=== PATIENT | male | born 1995 | race Caucasian/White ===

== ENCOUNTER 2025-02-21 05:57 | Emergency (ER) | payer OTHER, SELFPAY ==
[2025-02-21 06:12] VITALS: BP 131/89
--- NOTE | 2025-02-21 08:16 | ED.GENMED ---
History of Present Illness
General
Chief Complaint: Throat Problem
Source: patient
Exam Limitations: none
Time Seen by Provider: 02/21/25 08:09
Nursing documentation reviewed up to this point in time: agreed with
History of Present Illness
History of Present Illness:
29-year-old male with a past medical history of asthma who presents to the emergency room for evaluation of sore throat. Patient reports that he was diagnosed with influenza about a week ago and was treated with Tamiflu and completed his course.
He says that his symptoms had completely resolved and he felt fine over the past few days until yesterday when he started to notice a mild scratchy throat which progressed to a sore throat in the evening time. This morning woke up and had low-grade
fever and worsening sore throat which prompted ER referral. He has noticed some hoarseness of his voice. He denies any drooling. No trismus. He denies any other acute complaints. He does make note that his daughter was recently positive for
strep.
Review of Systems
Review of Systems
All Other Systems: ROS reviewed and negative except as documented in HPI and ROS
Constitutional: Reports fever
EENT: Reports sore throat; Denies runny nose
Respiratory: Reports cough; Denies trouble breathing
ABD/GI: Denies vomiting
Phy Exam
Physical Exam
Physical Exam:
General: Awake, alert, oriented x3; no acute distress
Head: Normocephalic, atraumatic
Eyes: Conjunctiva normal, EOMI
Throat: Airway intact, handling secretions without drooling, no trismus, midline uvula without deviation, mild tonsillar erythema and symmetric enlargement but no exudate noted, mild erythema of the pharynx
Neck: Trachea midline, supple without meningismus; bilateral left greater than right cervical adenopathy
Lungs: Breathing comfortably without evidence of respiratory distress
Heart: Regular rate
Skin: Warm and dry
Extremities: Warm and well-perfused
Scores
Heart Failure Risk
Heart Failure Risk Score: Not Applicable
Heart Score for Chest Pain Patients
STEMI patient?: Not applicable
Withdrawal Assessment of Alcohol
Withdrawal Assessment Completed?: Not applicable
Course
Orders/Labs/Results
Orders:
Orders
02/21/25 08:15
Dexamethasone [Decadron] 10 mg PO NOW STA
Ketorolac [Toradol] 30 mg IM NOW STA
02/21/25 08:21
Acetaminophen [Tylenol] 1,000 mg PO NOW STA
02/21/25 08:39
Rapid Strep Group A Urgent
ALEJA Source: Throat/Pharynx
Specimen Description:
Date Specimen was Collected: 02/21/25
Time Specimen was Collected: 08:17
Vital Signs
Initial and Last Documented VS:
Initial Vital Signs
Temp Pulse Resp BP Pulse Ox
37.7 C 80 20 131/89 99
02/21/25 06:12 02/21/25 06:12 02/21/25 06:12 02/21/25 06:12 02/21/25 06:12
Last Documented Vital Signs
Temp Pulse Resp BP Pulse Ox
37.9 C 85 20 136/81 99
02/21/25 08:53 02/21/25 08:53 02/21/25 08:53 02/21/25 08:53 02/21/25 08:53
MDM/Problems Addressed
Differential Diagnosis Includes:
Strep pharyngitis/tonsillitis, viral pharyngitis/tonsillitis; nothing by history or exam to suggest [employer] CLE[employer]ANCE/RPA
MDM/Problems Addressed:
29-year-old male presents for evaluation of sore throat started yesterday evening after recently getting over the flu. Daughter recently positive for strep. He had associated fever still has mild residual cough no other acute issues. Vitals and
exam are as above here. He has no trismus or drooling, midline uvula, no tonsillar asymmetry�nothing to suggest peritonsillar abscess or retropharyngeal abscess. Will send strep swab given recent positive and his daughter but overall appears more
consistent with viral pharyngitis/tonsillitis. Will treat with Decadron, Toradol. Reassess at the above.
Rapid strep negative although culture pending. Patient feeling a bit better on reassessment; overall suspect likely viral but given recent positive strep and close contact/daughter will treat with empiric antibiotics pending culture. Can
discontinue if culture negative. Stable for discharge at this point. Spoke about follow-up plan and return precautions all questions answered.
*Pulse Oximetry
SaO2: 99
Oxygen Mode of Delivery: Room air
Patient hypoxic: no (99%)
*Critical Care Note
Total Time (30-74mins, 75-104mins- exclusive of procedures): Not Applicable
Data Reviewed
Source: patient
Further Testing Considered But Not Given:
Considered need for CT of the neck
ED Attending Note
-
Portions of this chart may have been created with voice recognition software.� Occasional wrong word or��sound alike� substitutions may have occurred due to the inherent limitations of voice recognition software.
Discharge Plan
Departure
Patient Disposition: Home (Routine Discharge)
Date of Disposition: 02/21/25
Time of Disposition: 09:34
Patient with high blood pressure during this ER visit?: No
Discharge Problem:
Acute pharyngitis
Instructions: Sore throat in adults - ED (DC)
Prescriptions:
New
amoxicillin 500 mg capsule
500 mg PO BID 10 Days Qty: 20 0RF
Referrals:
Beverly Dobbs MD [Family Provider, Family Practice] - Follow up in 5-7 days
Activity Restrictions/Additional Instructions:
Thank you for visiting the Emergency Department at [facility].
1. Please schedule a follow up appointment as directed. Call first thing tomorrow morning to make an appointment.
2. If indicated, please take your medications as instructed and indicated on discharge paperwork.
3. If any of your symptoms do not improve, or persist, or become more severe within 6-12 hours, please return to the emergency department for further care.
4. Please return to the emergency department if you develop a headache, neck pain/stiffness, fever greater than 100.4F, chest pain, shortness of breath, persistent nausea, vomiting, slurred speech, difficulty walking, numbness/tingling, weakness,
signs of infection or any other symptoms that are worrisome to you.
Please call [phone] if you have any questions.
Interventions
Interventions:
*General Assessment Last Done: 02/21/25 06:12
*Neglect/Abuse Screening Last Done: 02/21/25 06:12
*ED COVID-19 Vaccine History Last Done: 02/21/25 06:12
*ED Influenza Vaccine History Last Done: 02/21/25 06:12
[facility] Risk Assessment Tool Last Done: 02/21/25 08:53
*Risk Screen - Suicide (C-SSRS) Last Done: 02/21/25 06:12
ED-EENT Assessment Last Done: 02/21/25 08:53
ED- Pulmonary Assessment Last Done: 02/21/25 08:53
Discharge Date and Time
Print Language: CZECH
[2025-02-21 08:39] VITALS: BMI 33.5
[2025-02-21] MEDS: TYLENOL 1000 MG PO (08:40)
[2025-02-21] MEDS: DECADRON 10 MG PO (08:40)
[2025-02-21] MEDS: TORADOL 30 MG IM (08:41)
[2025-02-21 08:53] VITALS: BP 136/81
== END 2025-02-21 09:50 | disposition home or self-care (01) ==
LOC: EMR 05:57
PROVIDERS: EMERGENCY PHYSICIAN Emergency Medicine; FAMILY PHYSICIAN Family Medicine
DX: J02.9 Acute pharyngitis, unspecified (principal); J45.909 Unspecified asthma, uncomplicated
CPT/HCPCS: 99284; 96372; 87070; 87147; 87880